=== PATIENT | male | born 1980 | race Caucasian/White ===

== ENCOUNTER 2021-11-28 09:13 | Emergency (ER) | payer MEDICAID ==
[~2021-11-28] VITALS: Ht 175.3 cm; Wt 77.1 kg
[2021-11-28 09:15] VITALS: BP_SYST 144
[2021-11-28 09:50] VITALS: BP_SYST 144
== END 2021-11-28 09:52 ==
LOC: SED 09:13
DX: Z13.9 Encounter for screening, unspecified (principal); Z88.0 Allergy status to penicillin; R07.9 Chest pain, unspecified; R06.02 Shortness of breath; R00.2 Palpitations
CPT/HCPCS: 93005; 99283